=== PATIENT | male | born 1960 | race Caucasian/White ===

== ENCOUNTER 2019-02-04 07:34 | Emergency (ER) | payer BC ==
[~2019-02-04] VITALS: Ht 172.7 cm; Wt 79.5 kg
[2019-02-04 07:52] VITALS: TEMP 98.2
[2019-02-04] MEDS ORDERED: XARELTO20 MG PO (08:20)
[2019-02-04] MEDS ORDERED: PRINIVIL10 MG PO (08:20)
[2019-02-04 08:36] LABS: BASO # 0.1 (0.0-0.2); BASO % 0.6 % (0.0-2.0); EOS # 0.2 (0.0-0.7); EOS % 2.7 % (0-4.0); GRAN # 5.9 (1.4-6.5); GRAN % 69.5 % (42.2-75.2); HEMOGLOBIN 17.6 g/dl (13.5-18.0); LYMPH # 1.5 (1.2-3.4); LYMPH % 17.4 % (20.0-51.0); MEAN CELL VOLUME 89 fl (80.0-100.0); MEAN CORPUSCULAR HEMOGLOBIN 29 pg (27.0-31.0); MEAN CORPUSCULAR HGB CONC 33 g/dl (33.0-37.0); MEAN PLATELET VOLUME 8.7 fl (7.4-10.4); MONO # 0.8 (0.1-0.6); MONO % 9.1 % (1.7-9.3); PLATELET COUNT 228 K/mm3 (130-400); RED BLOOD COUNT 6.01 M/mm3 (4.20-5.60); REDCELL DISTRIBUTION WIDTH-CV 13.5 % (11.5-14.5)
[2019-02-04 08:41] LABS: HEMATOCRIT 53.3 % (42.0-52.0)
[2019-02-04 08:52] LABS: POTASSIUM 4.1 mmol/L (3.4-5.0)
[2019-02-04 08:58] LABS: CREATININE, serum 1.26 (0.66-1.25)
[2019-02-04] MEDS ORDERED: NORCO 325 MG-7.1 TAB PO (09:35)
[2019-02-04] MEDS ORDERED: ZITHROMAX Z PA250 MG PO (09:50)
[2019-02-04 10:30] VITALS: BP 129/79; PULSE 81
== END 2019-02-04 10:31 | disposition home or self-care (01) ==
LOC: COL.ER 07:34
PROVIDERS: Physician Assistant
DX: R05 Cough (principal); I10 Essential (primary) hypertension; Z79.01 Long term (current) use of anticoagulants; Z86.711 Personal history of pulmonary embolism